=== PATIENT | male | born 1990 | race African-American/Black ===

== ENCOUNTER 2020-09-14 00:58 | Emergency (ER) | payer OTHER ==
[~2020-09-14] VITALS: Ht 188 cm; Wt 66.7 kg
[2020-09-14 01:20] VITALS: BP 136/77
[2020-09-14] MEDS ORDERED: NEURONTIN300 MG PO (01:31)
[2020-09-14] MEDS ORDERED: NORVASC 2.5 MG2.5 M1 (01:32)
[2020-09-14] MEDS ORDERED: ASA81BEC PO (01:32)
[2020-09-14] MEDS ORDERED: HYDRALAZINE 2525 MG PO (01:33)
[2020-09-14] MEDS ORDERED: NORCO 10-325 T1 EACH PO (01:35)
[2020-09-14] MEDS ORDERED: AMOXICILLIN 50500 M1 PO (01:35)
== END 2020-09-14 02:01 | disposition home or self-care (01) ==
LOC: ER 00:58
DX: K08.89 Other specified disorders of teeth and supporting structures (principal); R22.0 Localized swelling, mass and lump, head; I10 Essential (primary) hypertension; Z79.82 Long term (current) use of aspirin; Z79.899 Other long term (current) drug therapy